=== PATIENT | female | born 1970 | race Caucasian/White ===

== ENCOUNTER 2022-07-10 17:02 | Emergency (ER) | payer BC, SELFPAY ==
[2022-07-10 17:12] VITALS: BP 147/91; PULSE 88; RESP 18; TEMP 36.4; O2SAT 99
[2022-07-10 17:14] VITALS: BP 147/91; PULSE 88; RESP 18; TEMP 36.4; O2SAT 99
--- NOTE | 2022-07-10 17:31 | ED.URI ---
HPI - URI/Sore Throat General Chief Complaint: Upper Respiratory Infection Stated Complaint: Congestion,Cough Time Seen by Provider: 07/10/22 17:23 Source: patient Mode of arrival: ambulatory Limitations: no limitations History of Present Illness HPI Narrative: Patient presents today complaining of a 12 day history of cough, chest congestion, nasal congestion. Cough is worse in the mornings. Denies shortness of breath or fever. She has been taking Tylenol cold and flu, Mucinex, Robitussin with mild relief. Denies any history of asthma or COPD. She is a nonsmoker. Related Data Home Medications Medication Instructions Recorded Confirmed atorvastatin 10 mg tablet 10 mg PO DAILY 07/10/22 07/10/22 bupropion HCl 150 mg tablet,12 hr 150 mg PO DAILY 07/10/22 07/10/22 sustained-release hydrochlorothiazide 50 mg tablet 50 mg PO DAILY 07/10/22 07/10/22 metformin 500 mg tablet,extended 500 mg PO DAILY 07/10/22 07/10/22 release 24 hr Allergies Allergy/AdvReac Type Severity Reaction Status Date / Time erythromycin base Allergy Unknown Unknown Verified 07/10/22 17:12 Penicillins Allergy Unknown Unknown Verified 07/10/22 17:12 ERYTHROMYCIN LACTOBIONATE AdvReac Severe N/V Uncoded 07/10/22 17:12 Review of Systems Review of Systems: CONSTITUTIONAL: Denies body aches, fever, chills, or sweats. EYES: Denies visual changes, redness, or discharge. ENT: Denies rhinorrhea, sore throat, or otalgia.+ congestion CARDIOVASCULAR: Denies chest pain, palpitations, or edema. RESPIRATORY: Denies dyspnea.+ cough, chest congestion GASTROINTESTINAL: Denies abdominal pain, nausea, vomiting, or diarrhea. GENITOURINARY: Denies dysuria or hematuria. SKIN: Denies rash, itching, or wounds. MUSCULOSKELETAL: Denies back pain, joint pain, or myalgia. NEUROLOGIC: Denies headache, numbness, tingling, or weakness. PSYCH: Denies depression or anxiety. [facility] Family History Family History Father Hypertension Acute myocardial infarction, Onset Age: 65 Family history of hypercholesterolemia Mother Hypertension, Onset Age: 67 Grandparent Acute myocardial infarction Other Family history of alcoholism Social History Social History Smoking status: Never smoker Alcohol intake: current Comments At time of signature, I have reviewed and agree with nursing past medical, surgical, social and family history unless otherwise noted. Please see nursing chart for further information. There is no relevant family history pertinent to the presenting complaint Exam Narrative: GENERAL: Well-appearing, well-nourished, and in no acute distress. HEAD: Normocephalic, atraumatic. EYES: EOMI. No redness or drainage. Conjunctivae normal. ENT: Mucous membranes pink and moist. Nares congested. No rhinorrhea. Right serous effusion without evidence of bacterial infection. Left TM normal. Throat normal. Uvula midline. NECK: Normal AROM. Supple. No lymphadenopathy. CHEST: No respiratory distress. Clear to auscultation. HEART: Regular rate and rhythm. No murmur appreciated. Normal peripheral pulses. EXTREMITIES: Normal range of motion. SKIN: Warm, dry, no rash. Capillary refill normal. Normal skin turgor. NEURO: No focal deficits. Alert and oriented x3. Gait steady. PSYCH: Normal affect. No signs of depression or anxiety. Course Course Level of Care: Express Care Visit Vital Signs Vital signs: Vital Signs Temperature 97.5 F L 07/10/22 17:12 Pulse Rate 88 07/10/22 17:12 Respiratory Rate 18 07/10/22 17:12 Blood Pressure 147/91 H 07/10/22 17:12 Pulse Oximetry 99 07/10/22 17:12 Oxygen Delivery Room Air 07/10/22 17:12 Temperature 97.5 F L 07/10/22 17:14 Pulse Rate 88 07/10/22 17:14 Respiratory Rate 18 07/10/22 17:14 Blood Pressure 147/91 H 07/10/22 17:14 Pulse Oximetry 99 07/10/22 17:14 Oxygen
== END 2022-07-10 17:41 | disposition home or self-care (01) ==
PROVIDERS: Emergency Provider Nurse Practitioner; PCP Physician Assistant
DX: J40 Bronchitis, not specified as acute or chronic (principal); J01.90 Acute sinusitis, unspecified
CPT/HCPCS: 99213; G0463